=== PATIENT | male | born 1985 | race Caucasian/White ===

== ENCOUNTER 2019-05-06 16:26 | Emergency (ER) | payer MEDICAID ==
[~2019-05-06] VITALS: Ht 180.3 cm; Wt 67.0 kg
[2019-05-06 16:28] VITALS: BP 126/92
== END 2019-05-06 18:02 | disposition home or self-care (01) ==
LOC: ER 16:27
DX: B35.1 Tinea unguium (principal)
CPT/HCPCS: 99281

== ENCOUNTER 2020-03-16 16:17 | Emergency (ER) | payer MEDICAID, OTHER ==
[~2020-03-16] VITALS: Ht 180.3 cm; Wt 61.4 kg
[2020-03-16 16:19] VITALS: BP 129/75
[2020-03-16] MEDS ORDERED: TERB250T4 PO (16:50)
[2020-03-16] MEDS ORDERED: TERB30CR8 TP (16:50)
== END 2020-03-16 17:09 | disposition home or self-care (01) ==
LOC: ER 16:18
DX: B35.1 Tinea unguium (principal); Z79.899 Other long term (current) drug therapy
CPT/HCPCS: 99283

== ENCOUNTER 2020-03-31 19:16 | Emergency (ER) | payer OTHER ==
[~2020-03-31] VITALS: Ht 180.3 cm; Wt 59.5 kg
[~2020-03-31 19:16] MED LIST: TERB250T4 PO; TERB30CR8 TP
[2020-03-31 19:18] VITALS: BP 114/73
[2020-03-31] MEDS ORDERED: TERB30CR8 TP (19:46)
[2020-03-31] MEDS ORDERED: TERB250T4 PO (19:46)
== END 2020-03-31 19:56 | disposition home or self-care (01) ==
LOC: ER 19:17
DX: L03.032 Cellulitis of left toe (principal); L03.031 Cellulitis of right toe; Z79.899 Other long term (current) drug therapy; Z76.0 Encounter for issue of repeat prescription
CPT/HCPCS: 99281; 99283

== ENCOUNTER 2022-05-10 11:00 | Emergency (ER) | payer MEDICAID, OTHER ==
[~2022-05-10] VITALS: Ht 180.3 cm; Wt 65.0 kg
[~2022-05-10 11:00] MED LIST changes: -TERB250T4 PO
[2022-05-10 11:10] VITALS: BP 126/81
== END 2022-05-10 13:00 | disposition home or self-care (01) ==
LOC: ER 11:01
DX: H61.23 Impacted cerumen, bilateral (principal)
CPT/HCPCS: 69210; 99282

== ENCOUNTER 2022-12-30 17:18 | Emergency (ER) | payer MEDICAID ==
[~2022-12-30] VITALS: Ht 180.3 cm; Wt 65.0 kg
[2022-12-30 17:22] VITALS: BP 127/84; PULSE 109; RESP 18; TEMP 98.1; O2SAT 96
== END 2022-12-30 20:17 | disposition home or self-care (01) ==
LOC: ER 17:18
DX: R05.8 Other specified cough (principal)
CPT/HCPCS: 71045; 99283

== ENCOUNTER 2023-05-31 08:01 | Emergency (ER) | payer MEDICAID ==
[~2023-05-31] VITALS: Ht 180.3 cm; Wt 65.0 kg
[2023-05-31 08:03] VITALS: BP 123/73; PULSE 90; RESP 16; TEMP 98; O2SAT 99
== END 2023-05-31 14:50 | disposition home or self-care (01) ==
LOC: ER 08:01
DX: H61.23 Impacted cerumen, bilateral (principal)
CPT/HCPCS: 69209; 99284